=== PATIENT | male | born 1960 | race Caucasian/White ===

== ENCOUNTER 2017-09-02 11:33 | Emergency (ER) | payer OTHER, BC ==
[~2017-09-02] VITALS: Ht 172.7 cm; Wt 87.0 kg
[~2017-09-02 11:33] MED LIST: FLECTOR PATCH
[2017-09-02 12:30] VITALS: BP 150/97; PULSE 80; RESP 17; TEMP 98.1; O2SAT 98
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
[2017-09-02] MEDS ORDERED: ROBA500T PO (14:07)
== END 2017-09-02 14:28 | disposition home or self-care (01) ==
LOC: PHEFT 11:33
DX: S13.4XXA Sprain of ligaments of cervical spine, initial encounter (principal); R42 Dizziness and giddiness; R11.0 Nausea; J32.2 Chronic ethmoidal sinusitis; M48.02 Spinal stenosis, cervical region; V43.62XA Car passenger injured in collision with other type car in traffic accident, initial encounter
CPT/HCPCS: 70450; 72125; 99284